=== PATIENT | female | born 1995 | race Two or more races ===

== ENCOUNTER 2019-11-11 11:47 | Inpatient (IN) | payer OTHER ==
--- NOTE | 2019-11-11 12:31 | PDOC ---
History of Present Illness - General Chief Complaint: Vaginal Bleeding Stated Complaint: VAGINAL BLEEDING History Source: Patient Exam Limitations: No Limitations - History of Present Illness Initial Comments: 11/11/19 12:50 24 yo female no sig pmh presents to the ED for 1 month of vaginal bleeding. Pt states her normal cycles last 2 weeks, goes through 6 pads per day, never required transfusions or iron in the past. Pt admits to new lightheadedness and generalized weakness over the last 1 week. Pt went to [facility] ED 10/21/2019 Transvag US report from [facility]: Indistinct myometrial junction. Multiple subcentimeter cysts, hyperechoic foci and acoustic shadowing throughout the uterine funus. Increased number of tortuous vessels penetrating the myometrium. Differential diagnosis includes adenomyosis versus endometrial hyperplasia Pt sent home with Iron pills. Pt saw Primary DIRECTOR TELEHEALTH a few days ago, no labs drawn and told to take OCPs. Pt states she is passing clots with bright and dark red blood along with bilateral lower quadrant abdominal cramping that feels like past menstrual cramps. Denies F/C/N/V, back pain, CP, SOB, changes in bowel or bladder habits. Past History - Past Medical History Allergies/Adverse Reactions: Allergies Allergy/AdvReac Type Severity Reaction Status Date / Time No Known Allergies Allergy Verified 11/11/19 11:57 Home Medications: Ambulatory Orders NK [No Known Home Medication] 11/11/19 Anemia: Yes COPD: No - Psycho Social/Smoking Cessation Hx Smoking History: Never smoked Hx Alcohol Use: Yes ("Occasional.") Drug/Substance Use Hx: No Review of Systems - Review of Systems Constitutional: No: Chills, Fever Respiratory: No: Shortness of Breath Cardiac (ROS): No: Chest Pain, Edema ABD/GI: No: Constipated, Diarrhea, Nausea, Vomiting : Yes: Other (vaginal bleeding). No: Burning, Dysuria, Flank Pain, Hematuria Integumentary: Yes: Pallor Neurological: Yes: Weakness (generalized), Other (lightheaded). No: Headache, Numbness, Paresthesia *Physical Exam - Vital Signs Last Vital Signs Temp Pulse Resp BP Pulse Ox 99.3 F 115 H 20 123/67 100 11/11/19 11:57 11/11/19 11:57 11/11/19 11:57 11/11/19 11:57 11/11/19 11:57 - Physical Exam General Appearance: Yes: Nourished, Appropriately Dressed. No: Apparent Distress HEENT: positive: EOMI, Pale Conjunctivae Neck: positive: Supple. negative: Carotid bruit Respiratory/Chest: positive: Lungs Clear, Normal Breath Sounds. negative: Respiratory Distress, Accessory Muscle Use, Rapid RR, Crackles, Rales, Rhonchi, Stridor, Wheezing Cardiovascular: positive: Regular Rhythm, S1, S2, Tachycardia. negative: Edema , JVD, Murmur Vascular Pulses: Dorsalis-Pedis (R): 4+, Doralis-Pedis (L): 4+ Female Pelvic Exam: positive: normal external exam, cervical os closed, normal adnexa, normal size ovaries, discharge (bloody), vaginal bleeding. negative: CMT Gastrointestinal/Abdominal: positive: Flat, Soft. negative: Pulsatile Mass, Distended, Guarding, Rebound, Tenderness Musculoskeletal: negative: CVA Tenderness Extremity: positive: Normal Capillary Refill, Normal Inspection, Normal Range of Motion, Pelvis Stable. negative: Pedal Edema Integumentary: positive: Normal Color, Dry, Warm Neurologic: positive: Fully Oriented, Alert, Normal Mood/Affect, Normal Response ED Treatment Course - LABORATORY CBC & Chemistry Diagram: 11/11/19 12:45 11/11/19 12:45 Medical Decision Making - Medical Decision Making 24 yo female no sig pmh presents to the ED for 1 month of vaginal bleeding. Pt states her normal cycles last 2 weeks, goes through 6 pads per day, never required transfusions or iron in the past. Pt admits to new lightheadedness and generalized weakness over the last 1 week. Pt went to [facility] ED 10/21/2019 Transvag US report from [facility]: Indistinct myometrial junction. Multiple subcentimeter cysts, hyperechoic foci and acoustic shadowing throughout the uterine funus. Increased number of tortuous vessels penetrating the myometrium. Differential diagnosis includes adenomyosis versus endometrial hyperplasia Pt sent home with Iron pills. Pt saw Primary DIRECTOR TELEHEALTH a few days ago, no labs drawn and told to take OCPs. Pt states she is passing clots with bright and dark red blood along with bilateral lower quadrant abdominal cramping that feels like past menstrual cramps. Denies F/C/N/V, back pain, CP, SOB, changes in bowel or bladder habits. Vitals show elevated HR. Pt likely volume depleted and will require blood. 500 ml bolus ordered while awaiting for CBC CBC shows Hem of 5.6 call to OB made 11/11/19 13:58 discussed case case with Dr. Loving in OB, states he agrees with transfusion of 2 units PRBCs and start taking 2 OCPs per day until bleeding stops. Awaiting call back for admission disposition (OB vs Medicine) 11/11/19 14:[address] Alvarez, states pt will be admitted to Medicine and she will be consulted Pending transvag US report 11/11/19 14:30 Micro blog sent Discharge - Discharge Information Problems reviewed: Yes Clinical Impression/Diagnosis: Vaginal bleeding Condition: Stable - Admission Yes - Follow up/Referral - Patient Discharge Instructions - Post Discharge Activity
[2019-11-11] MEDS ORDERED: SODIUM CHLORIDE 500 ML IV STA (12:50)
[2019-11-11 13:06] LABS: BASO % 0.3 % (0-2.0); EOS % 0.7 % (0-4.5); HEMATOCRIT 18.4 % (32.4-45.2); LYMPH % 20.8 % (8-40); MCH 22.1 pg (25.7-33.7); MCHC 30.3 g/dl (32.0-36.0); MEAN CELL VOLUME 72.9 fl (80-96); MEAN PLT VOLUME 7.9 fl (7.5-11.1); MONO % 7.5 % (3.8-10.2); NEUT % 70.7 % (42.8-82.8); PLATELET COUNT 301 K/MM3 (134-434); RBC 2.53 M/mm3 (3.60-5.2); RDW 23.5 % (11.6-15.6); WHITE BLOOD COUNT 10.1 K/mm3 (4.0-10.0)
[2019-11-11 13:07] LABS: HEMOGLOBIN 5.6 GM/dL (10.7-15.3)
[2019-11-11 13:32] LABS: INR 1.08 (0.83-1.09); PROTHROMBIN TIME (PATIENT) 12.7 SEC (9.7-13.0)
[2019-11-11 13:35] LABS: ACTIVATED PTT 29.2 SECONDS (25.2-36.5)
[2019-11-11 13:38] LABS: ALBUMIN 3.1 g/dl (3.4-5.0); BILIRUBIN,TOTAL 0.2 mg/dL (0.2-1); BLOOD UREA NITROGEN 6.2 mg/dL (7-18); CALCIUM 8.2 mg/dL (8.5-10.1); CREATININE 0.6 mg/dL (0.55-1.3); POTASSIUM 3.5 mmol/L (3.5-5.1); TOT PROT 6.5 g/dl (6.4-8.2)
--- NOTE | 2019-11-11 13:45 | PDOC ---
Attending Attestation - Resident Resident Name: Tyler Dillon - ED Attending Attestation I have performed the following: I have examined & evaluated the patient, The case was reviewed & discussed with the resident, I agree w/resident's findings & plan - HPI HPI: 11/11/19 13:39 Healthy 24-year-old female with no significant past medical history other than baseline irregular and heavy menses presents with persistent vaginal bleeding for one month, now with [place]/fatigue/palpitations and near syncope for 2-3 days. bleeding began on 10/03, pt seen at [facility] 10/23, U/S findings per resident note, discharged on medroxyprogesterone and iron pills. No change to bleeding. Seen by her IMPLEMENTATION SERVICES ANALYST 2d ago and started on OCP but presents now 2/2 above sxs and persistent bleeding. - Physicial Exam PE: 11/11/19 13:45 afebrile, slight tachycardia, BP stable alert, obese, seated comfortably on stretcher + conj pallor, no jaundice heart regular slight tachy, lungs clear abd soft/nd. suprapubic discomfort to palpation without guarding/rebound/ masses. no cvat. 2+ distal pulses - Medical Decision Making 11/11/19 13:46 24y/o F with heavy mentstrual bleeding, now with symptomatic anemia despite trial of OCP. HD stable here without heavy active bleed. Hgb 5.6 - no prior for comparison. pelvic u/s tx PRBC discussed with IMPLEMENTATION SERVICES ANALYST, will follow of note - stepfather intermittently at bedside at patient's consent. detailed questions were addressed. discussed with patient, no abuse or safety issues. Heart Score/ECG Review #1 ECG reviewed & interpreted by me at: 13:09 General ECG Interpretation: Sinus Rhythm, Normal Rate (106), Normal Intervals ( qtc 456), No acute ischemic changes
[2019-11-11 13:55] LABS: ANISOCYTOSIS 2+; TEAR DROP CELLS 1+
--- NOTE | 2019-11-11 15:54 | EKG ---
Test Reason : Blood Pressure : / mmHG Vent. Rate : 106 BPM Atrial Rate : 106 BPM P-R Int : 152 ms QRS Dur : 082 ms QT Int : 344 ms P-R-T Axes : 032 043 017 degrees QTc Int : 456 ms SINUS TACHYCARDIA OTHERWISE NORMAL ECG NO PREVIOUS ECGS AVAILABLE Confirmed by MD Lira Daniel ([id number]) on 11/11/2019 3:53:39 PM Referred By: Confirmed By:Leonard Lira MD
--- NOTE | 2019-11-11 16:17 | HP ---
CHIEF COMPLAINT: heavy vaginal bleed, dizziness PCP:None HISTORY OF PRESENT ILLNESS: Patient is a 24 year old female with history significant for heavy menstrual bleeding, presented to the ED due to dizziness and persistent heavy vaginal bleeding. Patient reported her menstrual period occurs monthly, lasting about 2 weeks, using about 6 pads per day. Last month, her menses started on 10/03, and has been persistent since. Two weeks ago, due to persistent vaginal bleeding, she went to [facility], TVS done showing adenomyosis vs endometrial hyperplasia. She was sent home on iron pills and Medroxyprogesterone for 14 days. She continued to have heavy vaginal bleeding. Four days ago, patient started experiencing dizziness and lightheadedness, worse today which brought her to the ED. She denies any fevers, chill,s headache, chest pain, SOB, palpitations, abdominal pain, diarrhea, urinary symptoms. ER course was notable for: (1)Hgb 5.6 (2)TVS: thickened endometrium measuring 1.5 cm in AP dimension with a tiny gestational saclike structure measuring 5mm. (3) Recent Travel: denies PAST MEDICAL HISTORY: Hx of heavy menstrual bleeding since 18yo x1 (about 7 years ago) PAST SURGICAL HISTORY: none Social History: Smoking:denies Alcohol:denies Drugs: denies Lives with mom and stepdad Family History: Mother - HTN, DM Allergies No Known Allergies Allergy (Verified 11/11/19 11:57) HOME MEDICATIONS: Home Medications Medication Instructions Recorded NK [No Known Home Medication] 11/11/19 REVIEW OF SYSTEMS CONSTITUTIONAL: Absent: fever, chills, diaphoresis, generalized weakness, malaise, loss of appetite, weight change HEENT: Absent: rhinorrhea, nasal congestion, throat pain, throat swelling, difficulty swallowing, mouth swelling, ear pain, eye pain, visual changes CARDIOVASCULAR: Absent: chest pain, syncope, palpitations, irregular heart rate, lightheadedness , peripheral edema RESPIRATORY: Absent: cough, shortness of breath, dyspnea with exertion, orthopnea, wheezing, stridor, hemoptysis GASTROINTESTINAL: Absent: abdominal pain, abdominal distension, nausea, vomiting, diarrhea, constipation, melena, hematochezia GENITOURINARY: heavy vaginal bleeding Absent: dysuria, frequency, urgency, hesitancy, hematuria, flank pain, genital pain MUSCULOSKELETAL: Absent: myalgia, arthralgia, joint swelling, back pain, neck pain SKIN: Absent: rash, itching, pallor HEMATOLOGIC/IMMUNOLOGIC: Absent: easy bleeding, easy bruising, lymphadenopathy, frequent infections ENDOCRINE: Absent: unexplained weight gain, unexplained weight loss, heat intolerance, cold intolerance NEUROLOGIC: Absent: headache, focal weakness or paresthesias, dizziness, unsteady gait, seizure, mental status changes, bladder or bowel incontinence PSYCHIATRIC: Absent: anxiety, depression, suicidal or homicidal ideation, hallucinations. PHYSICAL EXAMINATION Vital Signs - 24 hr 11/11/19 11/11/19 11/11/19 11:57 15:00 15:15 Temperature 99.3 F 98.4 F 97.8 F Pulse Rate 115 H Pulse Rate [ 115 H 108 H Left Apical] Respiratory 20 18 16 Rate Blood Pressure 123/67 Blood Pressure 134/76 152/70 [Left Arm] O2 Sat by Pulse 100 98 98 Oximetry (%) GENERAL: Awake, alert, and fully oriented, in no acute distress. HEAD: Normal with no signs of trauma. EYES: PERRLA, EOMI, sclera anicteric, conjunctiva clear. EARS, NOSE, THROAT: Moist mucous membranes. NECK: Normal range of motion, supple without lymphadenopathy, JVD, or masses. LUNGS: Breath sounds equal, clear to auscultation bilaterally. HEART: Tachycardic, normal S1 and S2 without murmur, rub or gallop. ABDOMEN: Soft, nontender, not distended, normoactive bowel sounds. MUSCULOSKELETAL: Normal range of motion at all joints. UPPER EXTREMITIES: 2+ pulses, warm, well-perfused. LOWER EXTREMITIES: 2+ pulses, warm, well-perfused. No peripheral edema. NEUROLOGICAL: Cranial nerves II-XII intact. Normal speech. Normal gait. PSYCHIATRIC: Cooperative. Good eye contact. Appropriate mood and affect. SKIN: Warm, dry, normal turgor. Laboratory Results - last 24 hr 11/11/19 11/11/19 11/11/19 12:45 12:45 12:45 WBC 10.1 H RBC 2.53 L Hgb 5.6 L* Hct 18.4 L MCV 72.9 L MCH 22.1 L MCHC 30.3 L RDW 23.5 H Plt Count 301 MPV 7.9 Absolute Neuts (auto) 7.1 Neutrophils % 70.7 Lymphocytes % 20.8 Monocytes % 7.5 Eosinophils % 0.7 Basophils % 0.3 Nucleated RBC % 0 Hypochromia 2+ Anisocytosis 2+ Tear Drop Cells 1+ PT with INR 12.70 INR 1.08 PTT (Actin FS) 29.2 Sodium Potassium Chloride Carbon Dioxide Anion Gap BUN Creatinine Est GFR (CKD-EPI)AfAm Est GFR (CKD-EPI)NonAf Random Glucose Calcium Total Bilirubin AST ALT Alkaline Phosphatase Total Protein Albumin Serum , Qual Blood Type O POSITIVE Antibody Screen Negative Crossmatch See Detail 11/11/19 11/11/19 11/11/19 12:45 12:45 13:50 WBC RBC Hgb Hct MCV MCH MCHC RDW Plt Count MPV Absolute Neuts (auto) Neutrophils % Lymphocytes % Monocytes % Eosinophils % Basophils % Nucleated RBC % Hypochromia Anisocytosis Tear Drop Cells PT with INR INR PTT (Actin FS) Sodium 139 Potassium 3.5 Chloride 109 H Carbon Dioxide 24 Anion Gap 7 L BUN 6.2 L Creatinine 0.6 Est GFR (CKD-EPI)AfAm 146.83 Est GFR (CKD-EPI)NonAf 126.68 Random Glucose 93 Calcium 8.2 L Total Bilirubin 0.2 AST 8 L ALT 17 Alkaline Phosphatase 58 Total Protein 6.5 Albumin 3.1 L Serum , Qual Negative Blood Type O POSITIVE Antibody Screen Crossmatch ASSESSMENT/PLAN: Patient is a 24 year old female with history significant for heavy menstrual bleeding, presented to the ED due to dizziness and persistent heavy vaginal bleeding. #Microcytic Anemia likely 2/2 heavy vaginal bleeding -H/H 5.6/18.4 -TVS: thickened endometrium measuring 1.5 cm in AP dimension with a tiny gestational saclike structure measuring 5mm. -Transfuse 2 pRBCs -OB (Dr. Galloway) consulted. Recommendations appreciated. -For D&C in am #FEN -Not on any standing fluids -Electrolytes wnl, routine bmp monitoring -Regular diet #Prophylaxis -SCDs, early ambulation #Disposition -full code -admit to med surg Visit type - Emergency Visit Emergency Visit: Yes ED Registration Date: 11/11/19 Care time: The patient presented to the Emergency Department on the above date and was hospitalized for further evaluation of their emergent condition. - New Patient This patient is new to me today: Yes Date on this admission: 11/11/19 - Critical Care Critical Care patient: No ATTENDING PHYSICIAN STATEMENT I saw and evaluated the patient. I reviewed the resident's note and discussed the case with the resident. I agree with the resident's findings and plan as documented. SUBJECTIVE: OBJECTIVE: ASSESSMENT AND PLAN:
--- NOTE | 2019-11-11 17:07 | PDOC ---
*Physical Exam - Vital Signs Last Vital Signs Temp Pulse Resp BP Pulse Ox 100.6 F H 106 H 20 121/72 114 H 11/11/19 17:02 11/11/19 17:02 11/11/19 17:02 11/11/19 17:02 11/11/19 17:02 ED Treatment Course - LABORATORY CBC & Chemistry Diagram: 11/13/19 07:48 11/12/19 14:15 - ADDITIONAL ORDERS Additional order review: Laboratory Results 11/11/19 11/11/19 11/11/19 13:50 12:45 12:45 PT with INR INR PTT (Actin FS) Sodium 139 Potassium 3.5 Chloride 109 H Carbon Dioxide 24 Anion Gap 7 L BUN 6.2 L Creatinine 0.6 Est GFR (CKD-EPI)AfAm 146.83 Est GFR (CKD-EPI)NonAf 126.68 Random Glucose 93 Calcium 8.2 L Total Bilirubin 0.2 AST 8 L ALT 17 Alkaline Phosphatase 58 Total Protein 6.5 Albumin 3.1 L Serum , Qual Negative Blood Type O POSITIVE Antibody Screen Crossmatch 11/11/19 11/11/19 12:45 12:45 PT with INR 12.70 INR 1.08 PTT (Actin FS) 29.2 Sodium Potassium Chloride Carbon Dioxide Anion Gap BUN Creatinine Est GFR (CKD-EPI)AfAm Est GFR (CKD-EPI)NonAf Random Glucose Calcium Total Bilirubin AST ALT Alkaline Phosphatase Total Protein Albumin Serum , Qual Blood Type O POSITIVE Antibody Screen Negative Crossmatch See Detail 11/11/19 12:45 RBC 2.53 L MCV 72.9 L MCHC 30.3 L RDW 23.5 H MPV 7.9 Neutrophils % 70.7 Lymphocytes % 20.8 Monocytes % 7.5 Eosinophils % 0.7 Basophils % 0.3 - Medications Given in the ED: ED Medications Discontinued Medications Generic Name Dose Route Start Last Admin Trade Name Freq PRN Reason Stop Dose Admin Sodium Chloride 500 mls @ 500 mls/hr 11/11/19 12:50 11/11/19 12:56 Normal Saline - IV 11/11/19 13:49 500 mls/hr ASDIR STA Administration Medical Decision Making - Medical Decision Making 11/11/19 17:06 ANTIONETTE Crabtree notified me and Dr. Dillon that patient was developing a fever. Pt did have a low grade fever (99.1) on arrival to ER orally. However, case was d/w blood bank and Dr. Kinney ([phone]) who recommends the following actions: - Stop the transfusion - Call blood bank to put in "blood transfusion order set" - Restart with fresh blood Dr. Dillon and RN Bro notified. 11/11/19 18:[address] Diaz [phone] requests 2 units transfused w/ post- transfusion CBC. Dr. Blankenship microblogged. Discharge - Discharge Information Problems reviewed: Yes Clinical Impression/Diagnosis: Vaginal bleeding Condition: Stable Disposition: HOME - Follow up/Referral - Patient Discharge Instructions - Post Discharge Activity
--- NOTE | 2019-11-11 17:34 | CON.OBG ---
Consult Consult Specialty:: oil field technician Referred by:: Wilma MCCLURE MD Reason for Consultation:: menometrorrhagia , severe anemia - History of Present Illness Chief Complaint: 24 yrs , Lmp 10/03/19, bleeding continuous since then, heavy , currently becoming lightheaded History of Present Illness: pt states she always bleeds heavy during the period . for past 6 years MH 28 days cycle x bleeding for 10-14 days x no pain h/o seeing same Diploma Pharmacy Technician PMD for last 3 years she has been placed on & off on OC pills , cycle on OC pills not heavy like without pills , duration of cycle is 6 days . h/o Thyroid work UP in past wnl pt went to ER at [facility] for heavy bleeding on 10/21/19 sono report;ut 8.5cm x5.7x 7.4cm complex em multiple subcentimeter cysts in lower segment, no distinct border bet em & myometrium Rt ovary 3.9x2.7x 3.1 cm mutiple follicular cysts Lt ovary 4.2x2.2x3.1 cm mutiple follicles cbc on 10/21/19 hgb 9.1 /hct 30.6 olt 379 she was recommende po vit & iron , f/u with district captain pt was seen by her Diploma Pharmacy Technician PMD 11/10/19 was advised OCpills , she does not know the name , she took only one pill yesterday . no h/o transfusion or hospitalization in the past for same reason . Past MH , before 6 yrs ago 28-30 days x 6 days heavy FMP ; 10yrs age contraception none not sexually active presently h/o chlamydia treated in past - History Source History Provided By: Patient, Medical Record Limitations to Obtaining History: No Limitations - Past Medical History LOADING CHECKER: No: Migraine, Seizure Cardio/Vascular: No: HTN, Murmur Pulmonary: No: Asthma Gastrointestinal: Yes: Other (none ) Hepatobiliary: Yes: Other (none ) Renal/: Yes: Other (none ) Reproductive: Yes: Polycystic Ovary Syndrome (possible ) ...LMP: 10/03/19 ...: No (SPRG neg ) ...: 1 ...Para: 0 Heme/Onc: Yes: Anemia Infectious Disease: Yes: STD's (h/o chlamydia in past ) Psych: No: Addictions, Anxiety, Bipolar, Depression, Panic, Psychosis, Schizophrenia, Other Endocrine: No: Diabetes Mellitus, Hyperparathyroidism, Hypothyroidism - Past Surgical History Past Surgical History: Yes: None (once a month ) - Alcohol/Substance Use Hx Alcohol Use: Yes ("Occasional.") Number of Drinks Daily: 2 (sometimes max 3-4 drinks ) History of Substance Use: reports: None - Smoking History Smoking history: Never smoked Home Medications - Allergies Allergies/Adverse Reactions: Allergies Allergy/AdvReac Type Severity Reaction Status Date / Time No Known Allergies Allergy Verified 11/11/19 11:57 - Home Medications Home Medications: Ambulatory Orders NK [No Known Home Medication] 11/11/19 Physical Exam-INSTRUCTIONAL SYSTEMS DESIGNER Vital Signs: Vital Signs Temperature 100.6 F H 11/11/19 17:02 Pulse Rate 106 H 11/11/19 17:02 Respiratory Rate 20 11/11/19 17:02 Blood Pressure 121/72 11/11/19 17:02 O2 Sat by Pulse Oximetry (%) 114 H 11/11/19 17:02 Selected Entries 11/11/19 11/11/19 11/11/19 15:15 16:33 17:02 Temperature 98.8 F 98.1 F Pulse Rate [ 108 H 98 H Left Apical] Blood Pressure 152/70 115/62 [Left Arm] O2 Sat by Pulse 98 98 114 H Oximetry (%) Selected Entries 11/11/19 11:57 Weight 221 lb Constitutional: Yes: Calm, Obese, Pallor Eyes: Yes: WNL HENT: Yes: Nasal Congestion Neck: Yes: WNL Cardiovascular: Yes: Tachycardia Respiratory: Yes: WNL Gastrointestinal: Yes: WNL, Normal Bowel Sounds, Soft, Abdomen, Obese. No: Tenderness, Tenderness, Epigastrium, Tenderness, Rebound ...Rectal Exam: Yes: Deferred Renal/: No: CVA Tenderness - Left, CVA Tenderness - Right Pelvis: No: Tenderness External Genitalia: Yes: Normal Internal Exam Deferred: Yes Vaginal Exam: Yes: Bleeding (heavy, running down the legs) Cervix: Yes: Bleeding (blood clot at os). No: Cerv Motion Tenderness, Condyloma Uterus: Yes: Anteverted, Enlarged, Firm, Other (pelvic exam unsatisfactory due to obesity). No: Tender Adnexa: Normal: Bilateral, Not Palpable: Bilateral (nontender ) Breast(s): Yes: WNL (large breast). No: Mass Extremities: Yes: WNL. No: Calf Tenderness Edema: No Integumentary: Yes: Tattoos Neurological: Yes: WNL, Alert, Oriented ...Motor Strength: WNL Psychiatric: Yes: WNL, Alert, Oriented Labs: CBC, BMP 11/11/19 12:45 11/11/19 12:45 Laboratory Tests 11/11/19 11/11/19 12:45 12:45 PT with INR 12.70 INR 1.08 PTT (Actin FS) 29.2 AST 8 L ALT 17 Alkaline Phosphatase 58 Total Protein 6.5 Albumin 3.1 L Problem List - Problems (1) Menometrorrhagia Code(s): N92.1 - EXCESSIVE AND FREQUENT MENSTRUATION WITH IRREGULAR CYCLE (2) Anemia Code(s): D64.9 - ANEMIA, UNSPECIFIED Qualifiers: Iron deficiency anemia type: chronic blood loss (3) Morbid obesity with BMI of 40.0-44.9, adult Code(s): E66.01 - MORBID (SEVERE) OBESITY DUE TO EXCESS CALORIES; Z68.41 - BODY MASS INDEX (BMI) 40.0-44.9, ADULT Assessment/Plan 24 yrs , menometrorrhagia, currently bleeding heavy , severly anemic ( h /h 5.6/18.4 ), drop in h/h from 9.1/30.8 on 10/21/19.Pt symptomatic . lo grade temp , may be due to prologed blood loss, r/o uti US today ut 8.3x5.9 thick em 1.5 cm cystic density in em 5mm , Rt ovary multiple follicular cyts & Lt ovary multiple follicles . Morbidly obese Possible PCO & or Metabolic syndrome due to thick em & abn appearance it is prudent to do Diagnostic & Therapeutic D& C . due to heavy bleeding i will not do hystroscopy pt ate at 4.00PM unable to do D&C today discussed with aneshesiologist recommend 3 units pack cell transfusions prior to D&C , D&C will do in AM tomorrow emperical antibiotics iv started
[2019-11-11] MEDS ORDERED: ACETAMINOPHEN 1000 MG/100 ML VIAL (NON FORMULARY) IVPB ONE (17:40)
[2019-11-11 18:02] LABS: EPI CELLS 4.5 /HPF (0-5/HPF); HYALINE CASTS 12 /lpf (0-8); URINE APPEARANCE TURBID; URINE BACTERIA 86.2 /hpf (NEGATIVE); URINE BILIRUBIN 1+ (NEGATIVE); URINE COLOR RED; URINE GLUCOSE (UA) NEGATIVE (NEGATIVE); URINE KETONE NEGATIVE (NEGATIVE); URINE LEUK ESTERASE 1+ (NEGATIVE); URINE NITRITE POSITIVE (NEGATIVE); URINE PROTEIN 3+ (NEGATIVE); URINE RBC 4555 /hpf (0-4); URINE UROBILINOGEN 0.2 mg/dL (0.2-1.0); URINE WBC 9 /hpf (0-5)
[2019-11-11] MEDS ORDERED: CEFAZOLIN 1 GM/D5W 2 GM/100 ML BAG ONE (18:02)
[2019-11-11] MEDS ORDERED: ACETAMINOPHEN INJECTION 100 ML IVPB ONE (18:02)
[2019-11-11] MEDS: CEFAZOLIN 2 GM in DEXTROSE 5%-WATER - 50 ML IVPB SCH (18:03)
--- NOTE | 2019-11-11 18:04 | PN ---
Teaching Attending Note Name of Resident: Miriam Paez ATTENDING PHYSICIAN STATEMENT I saw and evaluated the patient. I reviewed the resident's note and discussed the case with the resident. I agree with the resident's findings and plan as documented. SUBJECTIVE: Patient seen and examined at bedside. Presents with symptomatic anemia secondary to endometrial hyperplasia and hypermenorrhea, currently comfortable, HD stable, receiving 3u pRBCs, scheduled for D&C in AM. OBJECTIVE: Vital Signs - 24 hr 11/11/19 11/11/19 11/11/19 11:57 15:00 15:15 Temperature 99.3 F 98.4 F 98.8 F Pulse Rate 115 H Pulse Rate [ 115 H 108 H Left Apical] Respiratory 20 18 16 Rate Blood Pressure 123/67 Blood Pressure 134/76 152/70 [Left Arm] O2 Sat by Pulse 100 98 98 Oximetry (%) 11/11/19 11/11/19 11/11/19 16:33 17:02 18:00 Temperature 98.1 F 100.6 F H 99.1 F Pulse Rate Pulse Rate [ 98 H 106 H 94 H Left Apical] Respiratory 16 20 16 Rate Blood Pressure Blood Pressure 115/62 121/72 109/73 [Left Arm] O2 Sat by Pulse 98 114 H 96 Oximetry (%) PE GA comfortable, morbidly obese, AAox3, speaking in full sentences HEENT NC/AT, EOMI, acanthosis++, wide neck circumference, thyroid not palpable Chest CTAB, no wheezing or crackles, buffalo hump present CVS S1, S2+, RRR Abd morbidly obese, grossly soft, NT, BS+ Ext No LE edema, no calf tenderness, moves all 4 ext. some suprapubic discomfort on palpation ASSESSMENT AND PLAN: 24 F h/o morbid obesity, ?PCOS/metabolic syndrome, presents with heavy menstrual bleeding a/w symptomatic anemia. Symptomatic anemia patient to receive 3u pRBCs, watch for transfusion reactions, Tylenol PRN for low grade fever, no focal source of infection, denies urinary symptoms, patient to receive prophylactic abx prior to OR procedure which will cover ?UTI anyway obtain CBC after transfusions, correct electrolytes PRN patient to be taken to OR in AM for D&C Evaluation Specialist consult Morbid obesity counseled on diet, exercise and weight loss send A1c/lipids/TSH FEN: IVF/daily lytes/NPO after 8PM tonight Med-surg
[2019-11-11 18:56] VITALS: BMI 41.5
[2019-11-12] MEDS: CEFAZOLIN 2 GM in DEXTROSE 5%-WATER - 50 ML IVPB SCH (02:47)
[2019-11-12] MEDS ORDERED: ACETAMINOPHEN 1000 MG/100 ML VIAL (NON FORMULARY) IVPB ONE (03:07)
[2019-11-12 03:15] LABS: BASO % 0.5 % (0-2.0); EOS % 0.5 % (0-4.5); HEMATOCRIT 25.7 % (32.4-45.2); HEMOGLOBIN 8.1 GM/dL (10.7-15.3); LYMPH % 23.6 % (8-40); MCHC 31.6 g/dl (32.0-36.0); MEAN CELL VOLUME 79.2 fl (80-96); MEAN PLT VOLUME 8.3 fl (7.5-11.1); MONO % 11.6 % (3.8-10.2); NEUT % 63.8 % (42.8-82.8); PLATELET COUNT 240 K/MM3 (134-434); RBC 3.24 M/mm3 (3.60-5.2); RDW 21.7 % (11.6-15.6); WHITE BLOOD COUNT 7.9 K/mm3 (4.0-10.0)
[2019-11-12] MEDS ORDERED: PROPOFOL 20 ML ONE ×3 (07:28)
[2019-11-12] MEDS ORDERED: MIDAZOLAM HCL 2 MG/2 ML SINGLE DOSE VIAL ONE (07:28)
[2019-11-12] MEDS ORDERED: LACTATED RINGERS SOLUTION 1,000 ML/1,000 ML INFUS.BAG IV SCH (08:30)
[2019-11-12] MEDS ORDERED: ONDANSETRON 4 MG/2 ML VIAL IVPUSH PRN (08:32)
--- NOTE | 2019-11-12 08:38 | OP ---
Operative Note - Note: Operative Date: 11/12/19 Pre-Operative Diagnosis: menometrorrhagia with severe anemia Operation: D&C Findings: Ut AV ns , uterocervical length 7 cm adnexa [employer] blood clots from vagina preop removed Laboratory Tests preop cbc , post 2pack cells & 150 ml of 1st unit to which transfusion reaction suspected 11/12/19 02:45 WBC 7.9 RBC 3.24 L Hgb 8.1 L Hct 25.7 L D MCV 79.2 L MCH 25.0 L D MCHC 31.6 L RDW 21.7 H Plt Count 240 D MPV 8.3 Absolute Neuts (auto) 5.1 Neutrophils % 63.8 Lymphocytes % 23.6 Monocytes % 11.6 H Post Op Recommendations to place patient on OC pills , one daily she gas pills with her , she can start today she can follow with her forestry aid MD in [facility] 1 week Sunday11/18/19 for path report follow up call [phone] for appt Surgeon: Glory Galloway Anesthesiologist/SHIPYARD PAINTER: Lyudmila Dee Anesthesia: General Specimens Removed: ecc. uterine contents, em curettings Estimated Blood Loss (mls): 100 Drains, Volume Out (mls): 55 (preop catheterization ) Fluid Volume Replaced (mls): 300 (RL solution ) Operative Report Dictated: Yes
--- NOTE | 2019-11-12 09:00 | PN ---
Teaching Attending Note Name of Resident: Corby Hines ATTENDING PHYSICIAN STATEMENT I saw and evaluated the patient. I reviewed the resident's note and discussed the case with the resident. I agree with the resident's findings and plan as documented. SUBJECTIVE: Feels well s/p D&C. No complaints. Fever, difficulty breathing associated with transfusion reaction, now resolved. No rash. No ongoing SOB. No CP/palpitations/lightheadedness. Some spotting continues. OBJECTIVE: Fever ?associated with transfusion reaction, Tmax 100.7. Hemodynamically Stable. Last Vital Signs Temp Pulse Resp BP Pulse Ox 98.6 F 98 H 20 120/56 L 100 11/12/19 06:32 11/12/19 06:32 11/12/19 06:32 11/12/19 06:32 11/11/19 21:00 HEENT - Atraumatic, Normocephalic. Heart - S1 S2, RRR Lungs - Clear to auscultation Abdomen - Soft, non-tender. Bowel Sounds normal. Extremities - No edema, no calf tenderness Neuro - AAO x 3. Tone/Power normal all extremities. Laboratory Results - last 24 hr 11/11/19 11/11/19 11/11/19 12:45 12:45 12:45 WBC 10.1 H RBC 2.53 L Hgb 5.6 L* Hct 18.4 L MCV 72.9 L MCH 22.1 L MCHC 30.3 L RDW 23.5 H Plt Count 301 MPV 7.9 Absolute Neuts (auto) 7.1 Neutrophils % 70.7 Lymphocytes % 20.8 Monocytes % 7.5 Eosinophils % 0.7 Basophils % 0.3 Nucleated RBC % 0 Hypochromia 2+ Anisocytosis 2+ Tear Drop Cells 1+ PT with INR 12.70 INR 1.08 PTT (Actin FS) 29.2 Sodium Potassium Chloride Carbon Dioxide Anion Gap BUN Creatinine Est GFR (CKD-EPI)AfAm Est GFR (CKD-EPI)NonAf Random Glucose Calcium Total Bilirubin AST ALT Alkaline Phosphatase Total Protein Albumin Serum , Qual Urine Color Urine Appearance Urine pH Ur Specific [place] Urine Protein Urine Glucose (UA) Urine Ketones Urine Blood Urine Nitrite Urine Bilirubin Urine Urobilinogen Ur Leukocyte Esterase Urine WBC (Auto) Urine RBC (Auto) Urine Casts (Auto) U Pathogenic Cast Auto U Epithel Cells (Auto) Urine Bacteria (Auto) Influenza A (Rapid) Influenza B (Rapid) Blood Type O POSITIVE Antibody Screen Negative Crossmatch See Detail Transfuse React Work-up 11/11/19 11/11/19 11/11/19 12:45 12:45 13:50 WBC RBC Hgb Hct MCV MCH MCHC RDW Plt Count MPV Absolute Neuts (auto) Neutrophils % Lymphocytes % Monocytes % Eosinophils % Basophils % Nucleated RBC % Hypochromia Anisocytosis Tear Drop Cells PT with INR INR PTT (Actin FS) Sodium 139 Potassium 3.5 Chloride 109 H Carbon Dioxide 24 Anion Gap 7 L BUN 6.2 L Creatinine 0.6 Est GFR (CKD-EPI)AfAm 146.83 Est GFR (CKD-EPI)NonAf 126.68 Random Glucose 93 Calcium 8.2 L Total Bilirubin 0.2 AST 8 L ALT 17 Alkaline Phosphatase 58 Total Protein 6.5 Albumin 3.1 L Serum , Qual Negative Urine Color Urine Appearance Urine pH Ur Specific [place] Urine Protein Urine Glucose (UA) Urine Ketones Urine Blood Urine Nitrite Urine Bilirubin Urine Urobilinogen Ur Leukocyte Esterase Urine WBC (Auto) Urine RBC (Auto) Urine Casts (Auto) U Pathogenic Cast Auto U Epithel Cells (Auto) Urine Bacteria (Auto) Influenza A (Rapid) Influenza B (Rapid) Blood Type O POSITIVE Antibody Screen Crossmatch Transfuse React Work-up 11/11/19 11/11/19 11/11/19 17:00 17:00 18:30 WBC RBC Hgb Hct MCV MCH MCHC RDW Plt Count MPV Absolute Neuts (auto) Neutrophils % Lymphocytes % Monocytes % Eosinophils % Basophils % Nucleated RBC % Hypochromia Anisocytosis Tear Drop Cells PT with INR INR PTT (Actin FS) Sodium Potassium Chloride Carbon Dioxide Anion Gap BUN Creatinine Est GFR (CKD-EPI)AfAm Est GFR (CKD-EPI)NonAf Random Glucose Calcium Total Bilirubin AST ALT Alkaline Phosphatase Total Protein Albumin Serum , Qual Urine Color Red Urine Appearance Turbid Urine pH 6.0 Ur Specific [place] 1.023 Urine Protein 3+ H Urine Glucose (UA) Negative Urine Ketones Negative Urine Blood 3+ H Urine Nitrite Positive H Urine Bilirubin 1+ H Urine Urobilinogen 0.2 Ur Leukocyte Esterase 1+ H Urine WBC (Auto) 9 Urine RBC (Auto) 4555 Urine Casts (Auto) 12 U Pathogenic Cast Auto None seen U Epithel Cells (Auto) 4.5 Urine Bacteria (Auto) 86.2 Influenza A (Rapid) Negative Influenza B (Rapid) Negative Blood Type O POSITIVE Antibody Screen Negative Crossmatch See Detail Transfuse React Work-up See comment 11/12/19 02:45 WBC 7.9 RBC 3.24 L Hgb 8.1 L Hct 25.7 L D MCV 79.2 L MCH 25.0 L D MCHC 31.6 L RDW 21.7 H Plt Count 240 D MPV 8.3 Absolute Neuts (auto) 5.1 Neutrophils % 63.8 Lymphocytes % 23.6 Monocytes % 11.6 H Eosinophils % 0.5 Basophils % 0.5 Nucleated RBC % 0 Hypochromia Anisocytosis Tear Drop Cells PT with INR INR PTT (Actin FS) Sodium Potassium Chloride Carbon Dioxide Anion Gap BUN Creatinine Est GFR (CKD-EPI)AfAm Est GFR (CKD-EPI)NonAf Random Glucose Calcium Total Bilirubin AST ALT Alkaline Phosphatase Total Protein Albumin Serum , Qual Urine Color Urine Appearance Urine pH Ur Specific [place] Urine Protein Urine Glucose (UA) Urine Ketones Urine Blood Urine Nitrite Urine Bilirubin Urine Urobilinogen Ur Leukocyte Esterase Urine WBC (Auto) Urine RBC (Auto) Urine Casts (Auto) U Pathogenic Cast Auto U Epithel Cells (Auto) Urine Bacteria (Auto) Influenza A (Rapid) Influenza B (Rapid) Blood Type Antibody Screen Crossmatch Transfuse React Work-up Current Medications Generic Name Dose Route Start Last Admin Trade Name Freq PRN Reason Stop Dose Admin Acetaminophen 650 mg 11/12/19 08:25 Tylenol - PO Q4H PRN PAIN LEVEL 1-5 Ascorbic Acid 500 mg 11/12/19 10:00 Vitamin C - PO BID CARLA Ferrous Sulfate 325 mg 11/12/19 12:00 Feosol - PO TIDCM CARLA Lactated Ringer's 1,000 ml in 1,000 mls @ 125 mls/hr 11/12/19 08:30 Lactated Ringers Solution IV ASDIR CARLA Cefazolin Sodium 2 gm/ 100 mls @ 200 mls/hr 11/12/19 10:00 Dextrose IVPB Q8H-IV CARLA Ondansetron HCl 4 mg 11/12/19 08:32 Zofran Injection IVPUSH Q6H PRN NAUSEA AND/OR VOMITING Home Medications Medication Instructions Recorded NK [No Known Home Medication] 11/11/19 ASSESSMENT AND PLAN: 24 year old female with history of Obesity, presents with 6 wek history of worsening vaginal bleeding. No CP/palps/SOB. Acute on Chronic Blood Loss Anemia secondary to Vaginal Bleeding, likely Dysfunctional Uterine Bleeding ?Spontaneous . Pelvic US - Thickened endometrium with possible gestational sac s/p D&C Reaction during transfusions of 1st and 4th units PRBCs - transfusions halted group home through. So far received approx total 3 units PRBCs. Monitor H/H On Cefazolin - Abx to be determined by Gynecology - no medical source of infection ?gynecological source. No acute medical issues at this time. Patient's presentation is gynecological and managed as such. Patient transferred to Gynecology service. Discussed with Dr. Galloway and Dr. Zuñiga. If persisting fever/leukocytosis, not related to transfusion reaction, consider gynecological cause and recommend ID consult.
[2019-11-12 09:15] LABS: BASO % 0.4 % (0-2.0); EOS % 0.6 % (0-4.5); HEMATOCRIT 24.5 % (32.4-45.2); HEMOGLOBIN 7.7 GM/dL (10.7-15.3); LYMPH % 25.2 % (8-40); MCH 24.9 pg (25.7-33.7); MCHC 31.2 g/dl (32.0-36.0); MEAN CELL VOLUME 79.6 fl (80-96); MEAN PLT VOLUME 7.9 fl (7.5-11.1); MONO % 14.2 % (3.8-10.2); NEUT % 59.6 % (42.8-82.8); PLATELET COUNT 221 K/MM3 (134-434); RBC 3.08 M/mm3 (3.60-5.2); RDW 21.6 % (11.6-15.6); WHITE BLOOD COUNT 6.3 K/mm3 (4.0-10.0)
[2019-11-12] MEDS: ACETAMINOPHEN 325 MG TABLET (FP) PO PRN ×3 (09:50→22:42)
[2019-11-12 09:52] LABS: BLOOD UREA NITROGEN 5.4 mg/dL (7-18); CALCIUM 7.8 mg/dL (8.5-10.1); CREATININE 0.5 mg/dL (0.55-1.3); MAGNESIUM 2.4 mg/dL (1.8-2.4); PHOSPHOROUS 3.6 mg/dL (2.5-4.9); POTASSIUM 3.9 mmol/L (3.5-5.1)
[2019-11-12] MEDS ORDERED: CEFAZOLIN 2 GM in DEXTROSE 5%-WATER 100 ML IVPB SCH (10:00)
[2019-11-12] MEDS ORDERED: CEFAZOLIN 2 GM/D5W 2 GM/50 ML ML IVPB SCH (10:00)
[2019-11-12] MEDS: ASCORBIC ACID 500 MG TABLET (FP) PO SCH ×2 (11:17→22:42)
[2019-11-12] MEDS: CEFAZOLIN 2 GM/D5W 2 GM/50 ML ML IVPB SCH ×2 (11:17→17:32)
[2019-11-12] MEDS: FERROUS SO4 325 MG TABLET (FP) PO SCH ×2 (11:17→17:32)
[2019-11-12 15:24] LABS: ALBUMIN 2.8 g/dl (3.4-5.0); BILIRUBIN,TOTAL 0.3 mg/dL (0.2-1); BLOOD UREA NITROGEN 6.2 mg/dL (7-18); CALCIUM 7.9 mg/dL (8.5-10.1); CREATININE 0.5 mg/dL (0.55-1.3); POTASSIUM 3.9 mmol/L (3.5-5.1)
--- NOTE | 2019-11-12 17:40 | PN ---
Physical Exam: SUBJECTIVE: Patient seen and examined OBJECTIVE: Vital Signs Period Temp Pulse Resp BP Sys/Panda Pulse Ox Last 24 Hr 97.9 F-982 F 79-115 16-20 95-120/53-73 96-100 GENERAL: The patient is awake, alert, and fully oriented, in no acute distress. EYES: PERRL, extraocular movements intact, sclera anicteric, conjunctiva clear. No ptosis. ENT: moist mucous membranes. LUNGS: Breath sounds equal, clear to auscultation bilaterally, no wheezes, no crackles HEART: Regular rate and rhythm, S1, S2 without murmur, rub or gallop. ABDOMEN: Soft, nontender, nondistended, normoactive bowel sounds, no guarding EXTREMITIES: 2+ pulses, warm, well-perfused, no edema. NEUROLOGICAL: Cranial nerves II through XII grossly intact. Normal speech SKIN: Warm, dry, normal turgor, no rashes or lesions noted Laboratory Results - last 24 hr 11/12/19 11/12/19 08:53 14:15 WBC RBC Hgb Hct MCV MCH MCHC RDW Plt Count MPV Absolute Neuts (auto) Neutrophils % Lymphocytes % Monocytes % Eosinophils % Basophils % Nucleated RBC % Sodium 142 141 Potassium 3.9 3.9 Chloride 112 H 111 H Carbon Dioxide 23 23 Anion Gap 7 L 7 L BUN 5.4 L 6.2 L Creatinine 0.5 L 0.5 L Est GFR (CKD-EPI)AfAm 155.90 155.90 Est GFR (CKD-EPI)NonAf 134.52 134.52 Random Glucose 82 104 Calcium 7.8 L 7.9 L Phosphorus 3.6 Magnesium 2.4 Total Bilirubin 0.3 AST 17 ALT 16 Alkaline Phosphatase 51 Total Protein 6.0 L Albumin 2.8 L TSH 1.67 Urine Color Urine Appearance Urine pH Ur Specific [place] Urine Protein Urine Glucose (UA) Urine Ketones Urine Blood Urine Nitrite Urine Bilirubin Urine Urobilinogen Ur Leukocyte Esterase Urine WBC (Auto) Urine RBC (Auto) Urine Casts (Auto) U Pathogenic Cast Auto U Epithel Cells (Auto) Urine Bacteria (Auto) Influenza A (Rapid) Influenza B (Rapid) Blood Type Antibody Screen Crossmatch Transfuse React Work-up Active Medications Generic Name Dose Route Start Last Admin Trade Name Freq PRN Reason Stop Dose Admin Acetaminophen 650 mg 11/12/19 08:25 11/12/19 17:32 Tylenol - PO 650 mg Q4H PRN Administration PAIN LEVEL 1-5 Ascorbic Acid 500 mg 11/12/19 10:00 11/12/19 11:17 Vitamin C - PO 500 mg BID CARLA Administration Ferrous Sulfate 325 mg 11/12/19 12:00 11/12/19 17:32 Feosol - PO 325 mg TIDCM CARLA Administration Lactated Ringer's 1,000 ml in 1,000 mls @ 125 mls/hr 11/12/19 08:30 Lactated Ringers Solution IV ASDIR CARLA Cefazolin Sodium/Dextrose 2 gm in 50 mls @ 200 mls/hr 11/12/19 10:00 17:32 Ancef 2 Gm Premixed Ivpb - IVPB 200 mls/hr Q8H-IV CARLA Administration Ondansetron HCl 4 mg 11/12/19 08:32 Zofran Injection IVPUSH Q6H PRN NAUSEA AND/OR VOMITING ASSESSMENT/PLAN: 24 year old female with history significant for heavy menstrual bleeding, presented for dizziness and persistent heavy vaginal bleeding. #Acute blood loss anemia 2/2 to uterine bleed H/H 7.7 TVS: thickened endometrium measuring 1.5 cm in AP dimension with a tiny gestational saclike structure measuring 5mm. Transfused 3 pRBCs OB (Dr. Galloway) consulted. Recommendations appreciated. Dr. Kwon Discussed with Dr. Galloway for transition of pt care s/p D&C Cefazolin 2gm Ferrous sulfate Zofran #FEN LR at 125 Electrolytes wnl, routine bmp monitoring Regular diet #DVT ppx SCDs, early ambulation #Dispo- f/u in am, pt POD1 Visit type - Emergency Visit Emergency Visit: Yes ED Registration Date: 11/11/19 Care time: The patient presented to the Emergency Department on the above date and was hospitalized for further evaluation of their emergent condition. - New Patient This patient is new to me today: Yes Date on this admission: 11/13/19 - Critical Care Critical Care patient: No - Discharge Referral Referred to [facility] Med P.C.: No ATTENDING PHYSICIAN STATEMENT I saw and evaluated the patient. I reviewed the resident's note and discussed the case with the resident. I agree with the resident's findings and plan as documented. SUBJECTIVE: OBJECTIVE: ASSESSMENT AND PLAN:
[2019-11-12 18:32] LABS: EPI CELLS 1.2 /HPF (0-5/HPF); HYALINE CASTS 1 /lpf (0-8); PH,URINE 7.5 (5.0-8.0); URINE APPEARANCE CLEAR; URINE BACTERIA 5.3 /hpf (NEGATIVE); URINE BILIRUBIN NEGATIVE (NEGATIVE); URINE COLOR ORANGE; URINE GLUCOSE (UA) NEGATIVE (NEGATIVE); URINE KETONE NEGATIVE (NEGATIVE); URINE LEUK ESTERASE TRACE (NEGATIVE); URINE NITRITE NEGATIVE (NEGATIVE); URINE PROTEIN NEGATIVE (NEGATIVE); URINE RBC 885 /hpf (0-4); URINE WBC 3 /hpf (0-5)
[2019-11-12 22:40] LABS: HEMATOCRIT 24.3 % (32.4-45.2); HEMOGLOBIN 7.8 GM/dL (10.7-15.3); MCH 25.5 pg (25.7-33.7); MCHC 32.3 g/dl (32.0-36.0); MEAN CELL VOLUME 78.9 fl (80-96); MEAN PLT VOLUME 8.1 fl (7.5-11.1); PLATELET COUNT 217 K/MM3 (134-434); RBC 3.08 M/mm3 (3.60-5.2); RDW 21.7 % (11.6-15.6); WHITE BLOOD COUNT 5.9 K/mm3 (4.0-10.0)
[2019-11-13] MEDS: CEFAZOLIN 2 GM/D5W 2 GM/50 ML ML IVPB SCH ×2 (02:58→10:11)
--- NOTE | 2019-11-13 08:01 | PN ---
Progress Note (short form) - Note Progress Note: Post op day #1.S/P D&C Under GA uneventful.Patient stable.No any anesthesia related problem.Patient Dc from the anesthesia care.
[2019-11-13] MEDS ORDERED: BENZOCAINE/MENTH/CETYLPYRD CL 1 EACH LOZENGE MM PRN (08:13)
--- NOTE | 2019-11-13 08:13 | OP ---
DATE OF OPERATION: 11/12/2019 PREOPERATIVE DIAGNOSIS: Menometrorrhagia with severe anemia, continuing bleeding. OPERATION PERFORMED: Dilatation and curettage. SURGEON: Yris Galloway MD ANESTHESIOLOGIST: ANESTHESIA: General. INDICATIONS: This is a 24-year-old 1, para 0-0-1-0, with history of in the past, LMP October 03, 2019, has continuous bleeding since then. She has a history of CBC done in the ER at [facility] on October 21 with hemoglobin of 9 g and at the emergency room at [facility] on November 11 the hemoglobin was 5.6. Patient continued to bleed heavily and ultrasound shows a thickened endometrium, 1.5 cm , with cystic changes in the endometrium and no distinct border between the endometrium and the myometrium. So it was decided to do a D&C for diagnostic and therapeutic purposes. Also, in the findings patient is obese. BMI is 41.6. DESCRIPTION OF PROCEDURE: Patient was taken to the operating room table. General anesthesia was given. Lithotomy position was given. Pubis, perineum, vagina were painted with Betadine, draped in the usual manner. Bladder was catheterized and emptied; 55 mL of urine was removed. Then pelvic examination was done. Uterus was anteverted, normal size. Cervix was posterior. Adnexa were not palpable. Weighted sputum was put anteriorly. The cervix was held with a single-tooth tenaculum. Uterocervical length was 7 cm. ECC was done. Then the cervix was dilated up to number 12 dilator. Then uterine cavity blood clots were removed and the curettage was done until normal tissue was obtained and there was hardly any tissue after it. Mainly it was blood clots felt and there was some irregularity felt in the fundal area. Later on the uterine cavity was cleaned. Estimated blood loss in the OR was 100 mL. Patient tolerated the procedure well and she was transferred to the recovery room in stable condition. She received 300 mL of IV fluids, Ringer's lactate solution. Preoperative hemoglobin was 8.1, hematocrit 25.7, status post 2 packed cell transfusion and 150 mL of 1st pack cells . d/ami due to transfusion reaction . Postoperatively CBC will be checked and accordingly then a transfusion will be given, and patient will be placed on control pills. YRIS GALLOWAY M.D. OLIVER/[id number] RAFFY
[2019-11-13 08:22] LABS: BASO % 0.3 % (0-2.0); EOS % 0.9 % (0-4.5); HEMATOCRIT 24.7 % (32.4-45.2); LYMPH % 25.1 % (8-40); MCH 25.5 pg (25.7-33.7); MCHC 32.4 g/dl (32.0-36.0); MEAN CELL VOLUME 78.8 fl (80-96); MEAN PLT VOLUME 8.2 fl (7.5-11.1); MONO % 11.1 % (3.8-10.2); NEUT % 62.6 % (42.8-82.8); PLATELET COUNT 221 K/MM3 (134-434); RBC 3.14 M/mm3 (3.60-5.2); RDW 22.3 % (11.6-15.6); WHITE BLOOD COUNT 5.3 K/mm3 (4.0-10.0)
--- NOTE | 2019-11-13 08:33 | PN ---
Progress Note, Physician History of Present Illness: 24yo with HMB/DUB s/p D&C, POD#1 Bleeding is still moderate per patient Notes sore throat No other complaints. - Current Medication List Current Medications: Active Medications Acetaminophen (Tylenol -) 650 mg PO Q4H PRN PRN Reason: PAIN LEVEL 1-5 Last Admin: 11/12/19 22:42 Dose: 650 mg Ascorbic Acid (Vitamin C -) 500 mg PO BID CARLA Last Admin: 11/12/19 22:42 Dose: 500 mg Benzocaine/Menthol (Cepacol Lozenge -) 1 each MM PRN PRN PRN Reason: SORE THROAT Ferrous Sulfate (Feosol -) 325 mg PO TIDCM CARLA Last Admin: 11/12/19 17:32 Dose: 325 mg Lactated Ringer's (Lactated Ringers Solution) 1,000 ml in 1,000 mls @ 125 mls/ hr IV ASDIR CARLA Cefazolin Sodium/Dextrose (Ancef 2 Gm Premixed Ivpb -) 2 gm in 50 mls @ 200 mls /hr IVPB Q8H-IV CARLA Last Admin: 11/13/19 02:58 Dose: 200 mls/hr Ondansetron HCl (Zofran Injection) 4 mg IVPUSH Q6H PRN PRN Reason: NAUSEA AND/OR VOMITING Last Admin: 11/13/19 03:35 Dose: 4 mg - Objective Vital Signs: Vital Signs Temperature 99 F 11/13/19 05:00 Pulse Rate 96 H 11/13/19 05:00 Respiratory Rate 20 11/13/19 05:00 Blood Pressure 104/64 11/13/19 05:00 O2 Sat by Pulse Oximetry (%) 99 11/13/19 03:09 Constitutional: No: Well Nourished, No Distress, Calm, Anxious, Ashen, Cachectic , Diaphoresis, Mild Distress, Moderate Distress, Severe Distress, Obese, Pallor , Poor Hygeine, Thin, Other Eyes: Yes: WNL, Conjunctiva Clear Gastrointestinal: Yes: Soft, Abdomen, Obese Edema: No Labs: CBC, BMP 11/13/19 07:48 11/12/19 14:15 INR, PTT INR 1.08 (0.83-1.09) 11/11/19 12:45 - ....Imaging Ultrasound: Report Reviewed Assessment/Plan 24yo with HMB/DUB s/p D&C POD#1 CBC stable today 05/24 Cont Iron BID Continue OCPs D/C to home today, with follow up in 4-7 days with either [facility] care or her Primary STAFF ASSISTANT at [facility] Adilene Felder MD
[2019-11-13] MEDS: FERROUS SO4 325 MG TABLET (FP) PO SCH (10:11)
[2019-11-13] MEDS: ASCORBIC ACID 500 MG TABLET (FP) PO SCH (10:11)
[2019-11-13] MEDS: ACETAMINOPHEN 325 MG TABLET (FP) PO PRN (10:16)
--- NOTE | 2019-11-13 11:55 | DS ---
Physical Exam-GERIATRICIAN Vital Signs: Vital Signs Temperature 99 F 11/13/19 05:00 Pulse Rate 96 H 11/13/19 05:00 Respiratory Rate 20 11/13/19 05:00 Blood Pressure 104/64 11/13/19 05:00 O2 Sat by Pulse Oximetry (%) 99 11/13/19 03:09 Selected Entries 11/12/19 17:30 Temperature 100.9 F H Constitutional: Yes: Well Nourished, Calm, Obese, Pallor Eyes: Yes: WNL HENT: Yes: WNL Neck: Yes: WNL Cardiovascular: Yes: WNL Respiratory: Yes: WNL Gastrointestinal: Yes: WNL, Abdomen, Obese Renal/: Yes: WNL. No: CVA Tenderness - Left, CVA Tenderness - Right Vaginal Exam: Yes: Bleeding (mild to moderate) Cervix: Yes: Normal, Bleeding Uterus: Yes: Normal, Freely Moveable, Anteverted, Firm. No: Enlarged Adnexa: Normal: Bilateral, Not Palpable: Bilateral Breast(s): Yes: WNL Musculoskeletal: Yes: WNL Extremities: Yes: WNL. No: Calf Tenderness Integumentary: Yes: Tattoos Neurological: Yes: WNL, Alert, Oriented ...Motor Strength: WNL Psychiatric: Yes: WNL, Alert, Oriented Labs: CBC, BMP 11/13/19 07:48 11/12/19 14:15 Laboratory Tests 11/11/19 11/12/19 11/12/19 12:45 08:53 14:15 AST 17 ALT 16 Alkaline Phosphatase 51 TSH 1.67 Serum , Qual Negative Discharge Summary Problems reviewed: Yes Reason For Visit: VAGINAL BLEEDING Current Active Problems Vaginal bleeding (Acute) Procedures: Principal: D&C 11/12/2019 Other Procedures: pack cell transfusion. 11/11/19 1st transfusion reaction - elvated temp -d/ami. 2nd & 3rd pack cell given completely 11/11/19 & 11/12/19 completed befoe 3.00AM. 4th pack cell post op ,Transfusion reaction, itching throat suffocation -d/ami Hospital Course: iv antibiotics , emperic rx presumed endomyometrits rx iv ancef Health Concerns: control of menometrorrhagia severe anemia secondary to blood loss & iron deff obesity Plan of Treatment: as directed Condition: Stable - Instructions Diet, Activity, Other Instructions: recommend to continue OC pills( trisprintec) given by her Pharmacy Clinical Coordinator PMD . one twice a day for first pack , followed by one daily on new pack . rtc at [address] [place] [address] on 11/18/19 for f/u of path report . call [phone] for appt. continue Iron tid & vit C bid Eat high iron , high protein diet . consider wt loss Referrals: Glory Galloway MD [Family Provider] - - Home Medications Comprehensive Discharge Medication List: Ambulatory Orders Acetaminophen [Tylenol .Regular Strength -] 650 mg PO Q4H PRN tablet 11/13/19 Amoxicillin/Potassium Clav [Augmentin 875-125 Tablet] 1 each PO BID 7 Days #14 tablet 11/13/19 Ascorbic Acid [Vitamin C -] 500 mg PO BID #60 tablet 11/13/19 Docusate Sodium [Colace] 100 mg PO BID PRN #60 capsule 11/13/19 Ferrous Sulfate [Feosol] 325 mg PO BID #30 tablet 11/13/19 Ferrous Sulfate [Feosol] 325 mg PO TIDCM #90 tab 11/13/19 Prescription Drug Monitoring Program (I-STOP) results: I-STOP reviewed and no issues identified
[2019-11-13 11:56] VITALS: BP 110/58; PULSE 94; TEMP 98.8
--- NOTE | 2019-11-14 18:54 | PATH ---
Surgical Pathology Report Patient Name: CARRI DU [facility]. Rec. #: [id number] /Age/Gender: 1995 (Age: 24) / F Account: [id number] Location: [facility] OBS/MANAGER CONTRACTING Taken: 11/12/2019 Received: 11/12/2019 Reported: 11/14/2019 Physicians: Glory Galloway M.D. Specimen(s) Received A: ENDOCERVICAL CURETTINGS B: UTERINE CONTENTS Clinical History Menometrorrhagia with severe anemia Bleeding for 6 weeks continuous, Hgb dropped from 9g on 10/21/19 to 5-6g 11/11/19 Final Diagnosis A. ENDOCERVICAL CURETTINGS: FRAGMENTS OF ENDOCERVICAL TISSUE WITH CHRONIC INFLAMMATION. SEPARATE FEW FRAGMENTS OF SUPERFICIAL ENDOMETRIAL TISSUE PRESENT. B. UTERINE CONTENTS: FRAGMENTS OF PROLIFERATIVE ENDOMETRIUM WITH STROMAL BREAKDOWN, SYNCYTIAL PAPILLARY CHANGE AND CILIATED METAPLASIA, ADMIXED WITH BLOOD CLOTS. Electronically Signed Giovanny Rios M.D. Gross Description A. Received in formalin labeled "endocervical curetting," is a 0.5 x 0.5 x 0.1 cm aggregate of espinoza-brown soft tissue fragments. The formalin is filtered and the specimen is entirely submitted in one cassette. B. Received in formalin labeled "uterine contents," is a 10.0 x 6.8 x 0.6 cm aggregate of espinoza-brown soft tissue fragments admixed with blood clot. The formalin is filtered and the specimen is entirely submitted in 10 cassettes. /11/12/2019 saudi11/12/2019
== END 2019-11-13 12:55 | disposition home or self-care (01) | DRG 744 ==
LOC: JER 11:47 → JERBED 14:46 → J6S 18:33 → J3W 11-12 09:35
PROVIDERS: ATTEND Obstetrics & Gynecology
PROC: 30233N1 Transfusion of Nonautologous Red Blood Cells into Peripheral Vein, Percutaneous Approach (ICD-10-PCS; 2019-11-11)
PROC: 0UDB7ZZ Extraction of Endometrium, Via Natural or Artificial Opening (ICD-10-PCS; principal; 2019-11-12 07:30)
DX: N93.8 Other specified abnormal uterine and vaginal bleeding (principal); D62 Acute posthemorrhagic anemia; Z68.41 Body mass index [BMI] 40.0-44.9, adult; E66.01 Morbid (severe) obesity due to excess calories; R42 Dizziness and giddiness; N92.1 Excessive and frequent menstruation with irregular cycle
CPT/HCPCS: 36415; 36430; 36511; 76830-TC; 80048; 80053; 81003; 83735; 84100; 84443; 84703; 85025; 85027; 85610; 85730; 86078; 86900; 86922; 87040; 87086; 87804; 88305-TC; 93005; 93010; 94760; 99285-25; J0131; P9038; P9058

== ENCOUNTER 2023-01-25 14:40 | Observation (INO) | payer SELFPAY ==
[2023-01-25 14:55] VITALS: BMI 89.5
[2023-01-25] MEDS ORDERED: SODIUM CHLORIDE 1,000 ML IV STA ×2 (15:21→17:57)
[2023-01-25] MEDS ORDERED: ACETAMINOPHEN 1000 MG/100 ML BAG IVPB ONE (15:21)
[2023-01-25] MEDS ORDERED: ACETAMINOPHEN INJECTION 100 ML IVPB ONE (15:55)
[2023-01-25 16:21] LABS: BASO % 0.6 % (0-2.0); EOS % 2.3 % (0-4.5); HEMOGLOBIN 7.5 GM/dL (10.7-15.3); LYMPH % 38.4 % (8-40); MCHC 30.2 g/dl (32.0-36.0); MEAN CELL VOLUME 59.4 fl (80-96); MEAN PLT VOLUME 8.4 fl (7.5-11.1); NEUT % 52.7 % (42.8-82.8); PLATELET COUNT 479 10^3/uL (134-434); RDW 21.6 % (11.6-15.6); WHITE BLOOD COUNT 10.2 K/mm3 (4.0-10.0)
[2023-01-25 16:25] LABS: MCH 17.9 pg (25.7-33.7)
[2023-01-25 16:30] LABS: INR 1.07 (0.83-1.09); PROTHROMBIN TIME (PATIENT) 12.4 SEC (9.7-13.0)
[2023-01-25 16:32] LABS: ACTIVATED PTT 29.5 SECONDS (25.2-36.5)
[2023-01-25 16:34] LABS: CALCIUM 9.1 mg/dL (8.5-10.1)
[2023-01-25 16:35] LABS: ALBUMIN 3.4 g/dl (3.4-5.0); BLOOD UREA NITROGEN 5.9 mg/dL (7-18)
[2023-01-25 16:38] LABS: CREATININE 0.5 mg/dL (0.55-1.3)
[2023-01-25 16:39] LABS: BILIRUBIN,TOTAL 0.4 mg/dL (0.2-1); TOT PROT 7.1 g/dl (6.4-8.2)
[2023-01-25 17:02] LABS: EPI CELLS 4 /uL (0-25.1); HYALINE CASTS 0 /uL (0-3.1); URINE APPEARANCE CLEAR; URINE BACTERIA 9 /uL (0-1359); URINE BILIRUBIN NEGATIVE (NEGATIVE); URINE COLOR YELLOW; URINE GLUCOSE (UA) NEGATIVE (NEGATIVE); URINE KETONE NEGATIVE (NEGATIVE); URINE LEUK ESTERASE NEGATIVE (NEGATIVE); URINE NITRITE NEGATIVE (NEGATIVE); URINE PROTEIN NEGATIVE (NEGATIVE); URINE RBC 3900 /uL (0-23.9); URINE UROBILINOGEN 0.2 mg/dL (0.2-1.0); URINE WBC 14 /uL (0-25.8)
[2023-01-25 17:38] LABS: ANISOCYTOSIS 3+; MACROCYTOSIS 1+; OVALOCYTE 1+
[2023-01-25 17:38] LABS: HCG,QUALITATIVE URINE Negative
[2023-01-25] MEDS ORDERED: ACETAMINOPHEN 325 MG TABLET (FP) PO PRN (18:33)
[2023-01-25] MEDS: FERROUS SO4 325 MG TABLET (FP) PO SCH (21:51)
[2023-01-26] MEDS: FERROUS SO4 325 MG TABLET (FP) PO SCH ×2 (09:54→21:00)
[2023-01-26 10:50] LABS: HEMATOCRIT 25.6 % (32.4-45.2); HEMOGLOBIN 7.9 GM/dL (10.7-15.3); MCHC 30.7 g/dl (32.0-36.0); MEAN CELL VOLUME 62.6 fl (80-96); MEAN PLT VOLUME 8.9 fl (7.5-11.1); PLATELET COUNT 383 10^3/uL (134-434); RBC 4.09 M/mm3 (3.60-5.2); WHITE BLOOD COUNT 8.6 K/mm3 (4.0-10.0)
[2023-01-26 10:52] LABS: MCH 19.2 pg (25.7-33.7)
[2023-01-27 06:43] VITALS: RESP 18
[2023-01-27] MEDS: FERROUS SO4 325 MG TABLET (FP) PO SCH ×2 (08:50→09:09)
[2023-01-27 10:18] LABS: BASO % 0.4 % (0-2.0); EOS % 2.1 % (0-4.5); HEMATOCRIT 30.4 % (32.4-45.2); HEMOGLOBIN 9.7 GM/dL (10.7-15.3); LYMPH % 29.7 % (8-40); MCH 20.7 pg (25.7-33.7); MCHC 31.8 g/dl (32.0-36.0); MEAN PLT VOLUME 8.9 fl (7.5-11.1); MONO % 4.7 % (3.8-10.2); NEUT % 63.1 % (42.8-82.8); PLATELET COUNT 410 10^3/uL (134-434); RBC 4.67 M/mm3 (3.60-5.2); RDW 26.9 % (11.6-15.6); WHITE BLOOD COUNT 9.5 K/mm3 (4.0-10.0)
[2023-01-27 10:40] LABS: IRON SERUM 44 ug/dL (50-175); TOTAL IRON BINDING CAPACITY 427 ug/dL (250-450)
[2023-01-27 10:53] LABS: ALBUMIN 3.2 g/dl (3.4-5.0); BLOOD UREA NITROGEN 7.2 mg/dL (7-18); CALCIUM 8.8 mg/dL (8.5-10.1)
[2023-01-27 10:56] LABS: CREATININE 0.6 mg/dL (0.55-1.3)
[2023-01-27 10:58] LABS: BILIRUBIN,TOTAL 0.5 mg/dL (0.2-1); TOT PROT 6.6 g/dl (6.4-8.2)
[2023-01-27] MEDS ORDERED: IRON SUCROSE INJECTION 200 MG in SODIUM CHLORIDE 90 ML IVPB ONE (14:02)
[2023-01-27 16:09] VITALS: BP 123/74; PULSE 93; TEMP 99.2
== END 2023-01-27 16:14 | disposition home or self-care (01) ==
LOC: JER 14:40 → JERBED 19:11 → J5S 21:28
PROVIDERS: ADMIT Internal Medicine; ATTEND Internal Medicine
CPT/HCPCS: 36415; 36430; 80053; 81003; 82728; 83540; 83550; 84155; 84165; 84703; 85025; 85027; 85610; 85730; 86850; 86870; 86900; 86901; 86902; 86922; 93005; 93010; 99285-25; C9803-CS; G0378; J1756; P9038; P9058; U0003; U0005